=== PATIENT | female | born 1950 | race Caucasian/White ===

== ENCOUNTER 2022-07-16 15:08 | Outpatient (CLI) | payer MEDICARE, BC, SELFPAY ==
--- NOTE | 2022-07-16 15:20 | CRLHL7_ITS ---
For Patients: As a result of the Century Cures Act, medical imaging exams and procedure reports are released immediately into your electronic medical record. You may view this report before your referring provider. If you have questions, please contact your health care provider. BILATERAL SCREENING MAMMOGRAM WITH COMPUTER-AIDED DETECTION AND TOMOSYNTHESIS TECHNIQUE: CC and MLO views were obtained. These mammographic images have been obtained using full-field digital technique. These mammographic images were interpreted with the benefit of computer-aided detection. Breast Tomosynthesis was used in this interpretation. COMPARISON FILM: 07/10/21, 06/27/20, 04/14/19. FINDINGS: The breasts are heterogeneously dense, which may obscure small masses IMPRESSION: There is no radiographic evidence for malignancy. ASSESSMENT: BI-RADS Category 1: Negative RECOMMENDATION: Routine screening mammogram in 1 year. A lay language report of this examination will be provided to the patient. Mathew Nichols M.D. Diagnostic Radiologist [email or web address] OSEAS/Dictated by: Mathew Nichols MD @ 07/17/2022 9:19:00 AM (Electronically Signed)
== END 2022-07-16 15:09 | disposition home or self-care (01) ==
LOC: MAMMO 15:12
PROVIDERS: PCP Family Medicine; Visit Provider Family Medicine
DX: Z12.31 Encounter for screening mammogram for malignant neoplasm of breast (principal)
CPT/HCPCS: 77063; 77067

== ENCOUNTER 2023-03-25 12:07 | Outpatient (CLI) | payer MEDICARE, BC, SELFPAY ==
[2023-03-25 12:13] VITALS: BP 150/83; PULSE 71; RESP 16; TEMP 36.1; O2SAT 98
[2023-03-25] MEDS: TETRACAINE 0.5% OPHTH 1 DROP EYE-BOTH ×2 (12:26→12:31)
--- NOTE | 2023-03-25 13:49 | P.OPTPRC_ITS ---
Procedure Note Date of procedure: 03/25/23 Will [facility] bill your pro fee for this procedure?: Yes Procedure Description: SURGEON: Claudia Callejas MD PREOPERATIVE DIAGNOSIS: Posterior capsular opacity, right and left eye POSTOPERATIVE DIAGNOSIS: Posterior capsular opacity, right and left eye PROCEDURE: YAG laser capsulotomy, both eyes ANESTHESIA: Topical. ESTIMATED BLOOD LOSS: None PATHOLOGY SPECIMEN: None COMPLICATIONS: None INDICATIONS: See consult note for details. The risks, benefits and alternatives of the procedure were explained to the patient, who elected to proceed and signed informed consent to do so. PROCEDURE: The patient was brought to the pre-holding area where the right and left eyes were identified as the operative eyes. I placed my initials above the eyes. The following was given in both eyes: The patient received 2 sets of 1 drop of 0.5% tetracaine and 1 drop of 1% tropicamide. They also received 1 drop of latanoprost due to prior side effects from brimonidine. They received 1 drop of 0.5% tetracaine immediately prior to bringing them back for the procedure. The patient was then brought to the procedure room where the right and left eyes were again identified as the operative eyes. A YAG Miguel capsulotomy lens was placed on the right eye. The laser was administered using a total number of 7 shots with an energy of 2.4 mJ per shot for a total energy of 17 mJ. The patient tolerated the procedure well. A YAG Miguel capsulotomy lens was placed on the left eye. The laser was administered using a total number of 18 shots with an energy of 2.4 mJ per shot for a total energy of 43 mJ. The patient tolerated the procedure well. DISPOSITION: The patient was taken back to the pre-holding area and given 1 drop of latanoprost in both eyes. They were discharged to home in stable condition. The patient was instructed to call me or go to the emergency department with any sudden change, including dramatic loss of vision, severe pain in the eye or eyebrow region, nausea, or vomiting. The patient was instructed to use the latanoprost 1 times a day in both eyes for 1 week. The patient will follow up in the clinic in 1-2 weeks.
== END 2023-03-25 13:22 | disposition home or self-care (01) ==
LOC: EYE PRC 12:08
PROVIDERS: PCP Family Medicine; Visit Provider Ophthalmology
DX: H26.9 Unspecified cataract (principal)
CPT/HCPCS: 66821; A9270

== ENCOUNTER 2023-06-24 09:05 | Outpatient (CLI) | payer MEDICARE, BC, SELFPAY | END 2023-06-24 09:06 | disposition home or self-care (01) | LOC: NFLDREF 13:03 | PROVIDERS: PCP Family Medicine; Referring Provider Family Medicine; Visit Provider Family Medicine | DX: E78.5 Hyperlipidemia, unspecified (principal) | CPT/HCPCS: 80053; 80061 ==

== ENCOUNTER 2023-07-16 07:57 | Outpatient (CLI) | payer MEDICARE, BC, SELFPAY ==
--- NOTE | 2023-07-16 08:36 | W.ANESCHARGE ---
Anesthesia Charges Start Date/Time Anesthesia Start Date: 07/16/23 Anesthesia Start Time: 08:37 Stop Date/Time Anesthesia Stop Date: 07/16/23 Anesthesia Stop Time: 09:14 Summary Extremes of Age - Over 70 or under 1: MDA
--- NOTE | 2023-07-16 09:16 | W.ANESCHARGE ---
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
== END 2023-07-16 07:58 | disposition home or self-care (01) ==
LOC: OP CLINIC 07:57
PROVIDERS: PCP Family Medicine; Visit Provider Surgery
DX: Z12.11 Encounter for screening for malignant neoplasm of colon (principal); K63.5 Polyp of colon; K62.1 Rectal polyp; K57.30 Diverticulosis of large intestine without perforation or abscess without bleeding; Z86.010 Personal history of colon polyps
CPT/HCPCS: 45385; 811; 88305; 99100; J2704

== ENCOUNTER 2023-07-21 09:01 | Outpatient (CLI) | payer MEDICARE, BC, SELFPAY ==
--- NOTE | 2023-07-21 09:15 | CRLHL7_ITS ---
For Patients: As a result of the Cures Act, medical imaging exams and procedure reports are released immediately into your electronic medical record. You may view this report before your referring provider. If you have questions, please contact your health care provider. BILATERAL SCREENING MAMMOGRAM WITH COMPUTER-AIDED DETECTION AND TOMOSYNTHESIS TECHNIQUE: CC and MLO views were obtained. These mammographic images have been obtained using full-field digital technique. These mammographic images were interpreted with the benefit of computer-aided detection. Breast Tomosynthesis was used in this interpretation. COMPARISON FILM: 07/16/22, 07/10/21, 06/07/20, 04/14/2019. FINDINGS: The breasts are heterogeneously dense, which may obscure small masses IMPRESSION: There is no radiographic evidence for malignancy. ASSESSMENT: BI-RADS Category 1: Negative RECOMMENDATION: Routine screening mammogram in 1 year. A lay language report of this examination will be provided to the patient. Francisco Estevez M.D. Diagnostic/Nuclear Medicine Radiologist [email or web address] OSEAS/Dictated by: Francisco Estevez MD @ 07/22/2023 10:25:00 AM (Electronically Signed)
== END 2023-07-21 09:02 | disposition home or self-care (01) ==
LOC: MAMMO 09:01
PROVIDERS: PCP Family Medicine; Visit Provider Family Medicine
DX: Z12.31 Encounter for screening mammogram for malignant neoplasm of breast (principal); R92.2 Inconclusive mammogram
CPT/HCPCS: 77063; 77067

== ENCOUNTER 2023-08-19 10:45 | Outpatient (RCR) | payer MEDICARE, BC, SELFPAY ==
--- NOTE | 2023-07-08 14:45 | PT.OPEX ---
PT [place] Outpatient Eval initial eval requires signature PT [facility] Outpatient Eval Start: 07/08/23 07:46 Freq: Status: Active Protocol: Document 07/08/23 10:58 CHANTEL (Rec: 07/08/23 14:24 CHANTEL [id number]) E-signed By Jose Ly DPT Physical Therapy Outpatient Evaluation Insurance Information Recert Due Date 10/01/23 Insurance Name Medicare B,Blue Cross/Blue Shield Medical Diagnosis cervicalgia Treating Diagnosis neck pain muscle weakness Referring MD kristen bueno Subjective Subjective Jemima comes into clinic dealing with neck pain after a couple weeks ago she went to the salon and had her neck in a uncomfortable position-felt more uncomfortable afterwards. States after she was having to help lift her head to reach back and drink. Since than she has been using medication and heat/ice to allow for some relief. Did also get a new pillow which she feels like has helped. While the pain has diminished the mobility is still limited, feels more stiff after watching tv or reading her book, increased challenge washing hair. Pain Comments 0/10 pain Current Work Status Retired Objective Other/Pertinent Objective SPINAL ALIGNMENT/POSTURE forward head posture . CERVICAL ROM Flexion: 65 deg Extension: 51 deg Right Rotation: 55 Left Rotation: 60 Right side bend: 15 Left Side bend: 20 SHOULDER AROM WN B NECK/SHOULDER MMT: WNL B except feeling more Upper neck /shoulder compensation on R vs L SPECIAL TEST Spurlings Test: + for pain on joint loading vs nerve pain Cervical distraction test: negative but felt relief from neck JOINT MOBILITY/PALPATION increased upper trap tightness on R vs L hypomobile C2-C7 with unilateral and central PAs increased discomfort with side glides R to L . Assessment Assessment/Impression Pt is a 71 yr old female who presents with concerns of neck pain. Signs and symptoms likely indicating / consistent with cervical OA and increased cervical muscle strain . Patient also has notable objective findings including impaired join mobility limited ROM, impaired strength/compensations also likely contributing to the problem. Patient is a good candidate for skilled therapy to target deficits described above. Skilled PT intervention is necessary for use of therapeutic exercise manual therapy, neuromuscular re- education and therapeutic activity. Functional impairments include difficulty with: reading, watching tv, showering . See appropriate sections of PT eval for complete list of goals and POC . D/C plan and criteria is for pt to achieve the goals as listed below or until max rehab potential is met. Pt was agreeable with plan of care and goals established Plan of Care Rehabilitation Potential Good Physical Therapy Goals Goals Patient will demonstrate/ report ability to watch tv for 45-60 minutes without neck pain within 4 weeks Patient will demonstrate/ report ability to perform self care such as showering/ washing hair without neck pain with 4 weeks Pt will be independent with HEP within 4 weeks to allow for independence and continued improvement past formal therapy Coordination/Communication With Referral Source Treatment Plan/Direct Interventions Joint Mobilization,Manual Therapy,Neuromuscular Re-ed, Self-Care/Home Management, Therapeutic Activities, Therapeutic Exercises Frequency/Duration 1-2 visits a week for 3-4 weeks Patient Will Be Discharged From Therapy Completion of LTG(s), Independent w/HEP, Independently Progressing Evaluation Billing Untimed Code Treatment Minutes 20 Complexity Low Certification Information Physician Comment/Change : Physician NPI Number #
== END 2023-08-19 11:34 | disposition home or self-care (01) ==
PROVIDERS: PCP Family Medicine; Visit Provider Family Medicine
DX: M54.2 Cervicalgia (principal); Z51.89 Encounter for other specified aftercare
CPT/HCPCS: 97110; 97140; 97161

== ENCOUNTER 2024-08-02 13:28 | Outpatient (CLI) | payer MEDICARE, BC, SELFPAY ==
--- NOTE | 2024-08-02 14:00 | CRLHL7_ITS ---
For Patients: As a result of the Century Cures Act, medical imaging exams and procedure reports are released immediately into your electronic medical record. You may view this report before your referring provider. If you have questions, please contact your health care provider. BILATERAL SCREENING MAMMOGRAM WITH COMPUTER-AIDED DETECTION AND TOMOSYNTHESIS TECHNIQUE: CC and MLO views were obtained. These mammographic images have been obtained using full-field digital technique. These mammographic images were interpreted with the benefit of computer-aided detection. Breast Tomosynthesis was used in this interpretation. COMPARISON FILM: 07/21/23, 07/16/22, 07/10/21. FINDINGS: The breasts are heterogeneously dense, which may obscure small masses IMPRESSION: There is no radiographic evidence for malignancy. ASSESSMENT: BI-RADS Category 2: Benign RECOMMENDATION: Routine screening mammogram in 1 year. A lay language report of this examination will be provided to the patient. Mathew Nichols M.D. Diagnostic Radiologist [email or web address] OSEAS/Dictated by: Mathew Nichols MD @ 08/03/2024 10:37:00 AM (Electronically Signed)
== END 2024-08-02 13:29 | disposition home or self-care (01) ==
LOC: MAMMO 13:29
PROVIDERS: PCP Family Medicine; Visit Provider Family Medicine
DX: Z12.31 Encounter for screening mammogram for malignant neoplasm of breast (principal); R92.2 Inconclusive mammogram
CPT/HCPCS: 77063; 77067

== ENCOUNTER 2025-06-12 13:00 | Outpatient (RCR) | payer MEDICARE, BC, SELFPAY ==
--- NOTE | 2025-05-24 14:12 | PT.OPEX ---
PT [place] Outpatient Eval PT [facility] Outpatient Eval Start: 05/24/25 07:54 Freq: Status: Active Protocol: Document 05/24/25 07:55 PERCY (Rec: 05/24/25 14:10 PERCY [id number]) E-signed By Gracia Arnold, PT Physical Therapy Outpatient Evaluation Insurance Information Recert Due Date 08/18/25 Insurance Name Medicare B,Blue Cross/Blue Shield Medical Diagnosis Left hip pain Hip bursitis, left Treating Diagnosis Left hip pain, limited hip ROM, low back pain, radiculopathy Imaging Report N/A Information Referring MD Callejas Subjective Subjective Jemima reports to PT with primary complaint of lateral left hip pain and left glut pain along. Pain initially began with R sided low back pain. She was told by chiropractor to sleep just on her left side d/t R sided back pain however this significantly flared up her left hip and woke up with pain traveling down her lateral left leg to her foot. She has tried heat, biofreeze and acupuncture with some relief but has not completely gone away. Goals are for patient to be able to sleep without waking in pain, negotiate stairs and walk for extended periods without aggravation of pain ( lives in an apartment and does not own a car; walking is main form of transportation). PMH: R ankle surgery d/t fx Pain Comments 8/10 worst mornings, going up stairs and after walking for extended periods Date of Last 05/15/25 Physician Visit Current Work Status Retired Objective Other/Pertinent Lumbar ROM: Objective -Flx: lower louise, R sided discomfort with repeated motion -Ext: 100% no pain -R Rot: 100% no pain -L Rot: 100% no pain -R Sidebend: 100% no pain -L Sidebend: 100% no pain Dermatome: intact to light touch LE ROM (R/L): -Hip Ext: 5/5 -Hip Flx: 110/110 -Hip ER: 40/35 discomfort into L glut -Hip IR: 15/15 no pain ASIS, PSIS an iliac crest level TTP L SI/sacrotuberous ligaments, piriformis, L greater trochanter, L TFL, L ITB Stork test: - B SI compression: - Assessment Assessment/ Patient is a 75 year old female presenting to physical Impression therapy for evaluation and treatment of left hip pain, low back pain and radicular L LE pain consistent with referring diagnosis of hip bursitis with potential disc derangement and SI dysfunction also at play. Session focused on discussion of pathophysiology of condition and how all of these systems can relate as well as discussing an exercise routine to address all areas of dysfunction. Patient presents with pain with repeated lumbar flexion, SI tenderness, TFL/ITB tenderness and tightness. These impairments are limiting the patients ability to wake in the morning without pain, walk for extended periods, ascend stairs. Patient appears motivated to participate in PT and presents with good prognosis to improve mobility, strength, proprioception and return to functional activities with skilled physical therapy intervention. Plan of Care Rehabilitation Good Potential Physical Therapy In 4 visits: Goals Patient will demonstrate WNL hip and back ROM with 0/10 pain in order to progress to more functional strengthening Patient will be able to sleep including on L side without waking from pain and with <2/10 pain in the morning In 8 visits: Pt will demonstrate at least 4+/5 LE and core strength in order to demonstrate functional progress Pt will be able to walk at least 2 miles with <2/10 pain for community ambulation Treatment Plan/ Gait Training,Ice/Cold/Vasopneumatic,Joint Mobilization Direct Interventions ,Manual Therapy,Neuromuscular Re-ed,Self-Care/Home Management,Therapeutic Activities,Therapeutic Exercises Patient Will Be Completion of LTG(s),Independent w/HEP,Independently Discharged From Progressing Therapy Evaluation Billing Untimed Code 18 Treatment Minutes Complexity Low Certification Information Initial 05/24/25 Certification Date Ending Certification 08/18/25 Date Provider Signature Yes Required Provider Signature POC & Medical Necessity Shows Agreement With Physician NPI Number Write NPI# Here Physician Comment/ : Change Physician Signature Please Sign/Date Here & Date Requested
== END 2025-08-29 14:26 | disposition home or self-care (01) ==
PROVIDERS: PCP Family Medicine; Visit Provider Orthopaedic Surgery
DX: M25.552 Pain in left hip (principal); M70.72 Other bursitis of hip, left hip; Z51.89 Encounter for other specified aftercare
CPT/HCPCS: 97110; 97140; 97161

== ENCOUNTER 2025-07-26 08:15 | Outpatient (RCR) | payer MEDICARE, BC, SELFPAY ==
--- NOTE | 2025-07-20 08:20 | PT.OPEX ---
PT [place] Outpatient Eval PT [facility] Outpatient Eval Start: 07/20/25 07:26 Freq: Status: Active Protocol: Document 07/20/25 07:26 CRP (Rec: 07/20/25 08:20 CRP [id number]) E-signed By Fermin Cazares, PT Physical Therapy Outpatient Evaluation Insurance Information Recert Due Date 10/18/25 Insurance Name Medicare B Medical Diagnosis Lumbar spine pain Referring MD Dr Morales Subjective Subjective Pt reports that last Winter she bent forward and caused a back strain. She had 2 weeks of severe 10/10 pain. After this the pain did calm down but she can still have times of 3-4/10. Pain is mainly on the R side. Now pain will increase going sit to stand but not while sitting. Pain with coming back up after bending forward. Does do a lot of walking and other than stiffness of the hips she does not have LBP. Not having problems with sleep. Has a recent hx of L hip bursitis. [place] and will be gone until next Spring. Pain Comments 3-4/10 Current Work Status Retired Objective Other/Pertinent Trunk ROM: Flex WNL, Ext mod dec, bilat SB mod dec, Objective bilat rot min dec Hip ROM WNL bilat MMT: myotomes WNL Abdominal flexion 4-/5 SLR negative bilat Assessment Assessment/ Pt presents to the clinic with ongoing lumbar spine Impression pain related issues that appear secondary to lumbar DDD /DJD and resulting facet mediated pain. Skilled PT is necessary to incorporate nm eric, ther ex and pt education to decrease pain and improve functional mobility. 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 Pt will be independent with HEP in 4 weeks. Goals 2. Pt will bend to tie shoes without c/o LBP in 8 weeks . 3. 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 Coordination/ Referral Source Communication With Treatment Plan/ Neuromuscular Re-ed,Self-Care/Home Management, Direct Interventions Therapeutic Activities,Therapeutic Exercises Frequency/Duration 1x/wk for 12 weeks Patient Will Be Completion of LTG(s),Skills Plateau,Independent w/HEP, Discharged From Independently Progressing Therapy Evaluation Billing Untimed Code 40 Treatment Minutes Complexity Low Certification Information Initial 07/20/25 Certification Date Ending Certification 10/18/25 Date Provider Signature Yes Required Provider Signature POC & Medical Necessity Shows Agreement With Physician NPI Number Write NPI# Here Physician Comment/ : Change Physician Signature Please Sign/Date Here & Date Requested
== END 2025-11-22 08:58 | disposition home or self-care (01) ==
PROVIDERS: PCP Family Medicine; Visit Provider Family Medicine
DX: M54.50 Low back pain, unspecified (principal); Z51.89 Encounter for other specified aftercare
CPT/HCPCS: 97110; 97161